=== PATIENT | male | born 1945 | race Caucasian/White ===

== ENCOUNTER 2017-07-12 11:04 | Emergency (ER) | payer MEDICARE, OTHER ==
[2017-07-12 11:32] VITALS: BP 145/99
--- NOTE | 2017-07-12 11:45 | EDM.PDOC ---
ED HPI GENERAL MEDICAL PROBLEM - General Chief Complaint: Lower Extremity Injury/Pain Stated Complaint: LT KNEE PAIN Time Seen by Provider: 07/12/17 11:27 Source of Information: Reports: Patient History Limitations: Reports: No Limitations - History of Present Illness INITIAL COMMENTS - FREE TEXT/NARRATIVE: The patient is a 72-year-old male who presents with left knee pain. He states he fell down the stairs at home last night. States that he thinks his knee twisted during the injury. Today he comes in for evaluation of left knee pain. States that the pain is minimal at rest. However when he tries to put weight on it it is uncomfortable. He feels like the knee is getting give out on him. He's more concerned about this giving out feeling than the pain. No hip pain. No ankle or foot pain. Denies additional injury. Denies head injury, neck injury, back, chest, or abdominal injury. Hasn't taken anything for pain today, states he doesn't need pain medication as long as he is able to rest the leg. Left Knee Pain Score (Numeric/FACES): 2 - Related Data Allergies Allergy/AdvReac Type Severity Reaction Status Date / Time No Known Allergies Allergy Verified 07/12/17 11:30 Home Meds: Home Meds Levothyroxine 175 mcg PO DAILY 08/05/14 [History] Past Medical History HEENT History: Reports: Hard of Hearing, Other (See Below) Other HEENT History: bilateral hearing aids Gastrointestinal History: Reports: Diverticulosis, GERD, Other (See Below) Other Gastrointestinal History: current hernia Genitourinary History: Reports: Other (See Below) Other Genitourinary History: kidney tumor with L nephrectomy Musculoskeletal History: Endocrine/Metabolic History: Reports: Hypothyroidism - Past Surgical History HEENT Surgical History: Reports: Cataract Surgery GI Surgical History: Reports: Appendectomy, Cholecystectomy, Other (See Below) Musculoskeletal Surgical History: Reports: Other (See Below) Social & Family History - Tobacco Use Smoking Status *Q: Former Smoker Years of Tobacco use: 45 Used Tobacco, but Quit: Yes Month Tobacco Last Used: 20 years Second Hand Smoke Exposure: No - Caffeine Use Caffeine Use: Reports: Coffee - Alcohol Use Days Per Week of Alcohol Use: 1 Number of Drinks Per Day: 1 Total Drinks Per Week: 1 - Recreational Drug Use Recreational Drug Use: No Drug Use in Last 12 Months: No Review of Systems - Review of Systems Review Of Systems: See Below Constitutional: Reports: No Symptoms Respiratory: Reports: No Symptoms Cardiovascular: Reports: No Symptoms Musculoskeletal: Reports: Leg Pain Neurological: Reports: No Symptoms ED EXAM, GENERAL - Physical Exam Exam: See Below Exam Limited By: No Limitations General Appearance: Alert, WD/WN, No Apparent Distress Eye Exam: Bilateral Eye: Normal Inspection Ears: Normal External Exam Nose: Normal Inspection Throat/Mouth: Normal Inspection, Normal Voice, No Airway Compromise Head: Atraumatic, Normocephalic Neck: Normal Inspection, Supple, Non-Tender, Full Range of Motion Respiratory/Chest: No Respiratory Distress GI/Abdominal: Soft, Non-Tender, No Distention Extremities: Other (Right lower extremity: No hip tenderness or femur tenderness. Left knee has a small knee effusion. No anterior knee tenderness. Mild tenderness along the medial joint line. Mild tenderness along the lateral joint line. No posterior knee tenderness. Limited range of motion of motion. Patient is able to flex to about 90 and is able to extend completely. Instability exam limited by pain. Skin intact throughout. Distal motor/sensation /perfusion intact.) Neurological: Alert, Oriented, Normal Cognition, No Motor/Sensory Deficits Psychiatric: Normal Affect, Normal Mood Skin Exam: Warm, Dry, Intact, Normal Color, No Rash Course - Vital Signs Last Recorded V/S: Last Vital Signs Temp 36.3 C 07/12/17 11:27 Pulse 72 07/12/17 11:27 Resp 18 07/12/17 11:27 BP 145/99 H 07/12/17 11:27 Pulse Ox 97 07/12/17 11:27 - Orders/Labs/Meds Orders: Active Orders 24 hr Category Date Time Status Knee Min 4V Lt [CR] Stat Exams 07/12/17 11:42 Taken - Re-Assessments/Exams Free Text/Narrative Re-Assessment/Exam: 07/12/17 12:12 XR shows no bony abnormality of the knee. Plan = knee immobilizer, crutches, f/ u with PCP for reeval in 1-2 weeks and for referral for MRI if not better. Departure - Departure Time of Disposition: 12:13 Disposition: Home, Self-Care 01 Clinical Impression: Derangement of knee - Discharge Information Referrals: Elvin Del Toro MD [Primary Care Provider] - Forms: ED Department Discharge Additional Instructions: 1. Take ibuprofen as needed for pain 2. Keep knee immobilized in knee immobilizer. Use crutches. Keep knee elevated when possible. Ice knee off and on today and tomorrow. 3. Follow up with your primary doctor in 1-2 weeks. If improving, you may discontinue knee imobilizer and crutches. If not improving or if knee continues to feel unstable, your primary doctor may consider referral for MRI and orthopedics evaluation. - My Orders Last 24 Hours: My Active Orders 07/12/17 11:42 Knee Min 4V Lt [CR] Stat - Assessment/Plan Last 24 Hours: My Active Orders 07/12/17 11:42 Knee Min 4V Lt [CR] Stat
--- NOTE | 2017-07-12 13:30 | CR ---
Left knee: Four views of the left knee were obtained. Comparison: No prior left knee exam. Medial and lateral joint spaces are maintained in height. Small joint effusion is seen. Minimal calcifications within the suprapatellar pouch are seen most likely synovial in location. No acute fracture or other bony abnormality is seen. Impression: 1. Slight synovial calcifications within the suprapatellar pouch. Questionable small joint effusion. 2. No acute bony abnormality is seen. Diagnostic code #2
== END 2017-07-12 12:25 | disposition home or self-care (01) ==
LOC: JD.ED 11:04
DX: M23.92 Unspecified internal derangement of left knee (principal); E03.9 Hypothyroidism, unspecified; Z87.891 Personal history of nicotine dependence; Z79.899 Other long term (current) drug therapy
CPT/HCPCS: 73564-26-LT; 73564-LT; 99283

== ENCOUNTER 2019-03-19 21:50 | Emergency (ER) | payer MEDICARE, OTHER ==
[2019-03-19 22:12] VITALS: BP 166/105
[2019-03-19] MEDS ORDERED: HYDROmorphone 0.5 MG/0.5 ML Syringe IVPUSH ONE (23:12)
[2019-03-19] MEDS ORDERED: Ondansetron 4 MG/2 ML SDV IVPUSH ONE (23:12)
[2019-03-19] MEDS ORDERED: Sodium Chloride 0.9% 1,000 ML IV SCH (23:15)
[2019-03-20] MEDS ORDERED: Magnesium Citrate Solution 296 ML Bottle PO ONE (00:20)
--- NOTE | 2019-03-20 00:23 | EDM.PDOC ---
ED HPI GENERAL MEDICAL PROBLEM - General Chief Complaint: Abdominal Pain Stated Complaint: ABDOMINAL PAIN Time Seen by Provider: 03/19/19 22:44 Source of Information: Reports: Patient, RN Notes Reviewed - History of Present Illness INITIAL COMMENTS - FREE TEXT/NARRATIVE: 73-year-old male comes in with abdominal pain. Case this started a few hours ago. Been feeling fine earlier today. He has had no nausea vomiting or diarrhea. No fever or chills. Does have history of prior hernia repair and also has had prior diverticulitis. No chest pain or difficulty breathing. His been somewhat constipated, no BM for the last day or 2. Middle Abdominal Pain Score (Numeric/FACES): 10 - Related Data Allergies Allergy/AdvReac Type Severity Reaction Status Date / Time No Known Allergies Allergy Verified 03/19/19 22:12 Home Meds: Home Meds Levothyroxine 175 mcg PO DAILY 08/05/14 [History] Past Medical History HEENT History: Reports: Hard of Hearing, Other (See Below) Other HEENT History: bilateral hearing aids Gastrointestinal History: Reports: Diverticulosis, GERD, Other (See Below) Other Gastrointestinal History: current hernia Genitourinary History: Reports: Other (See Below) Other Genitourinary History: kidney tumor with L nephrectomy Musculoskeletal History: Endocrine/Metabolic History: Reports: Hypothyroidism - Past Surgical History HEENT Surgical History: Reports: Cataract Surgery GI Surgical History: Reports: Appendectomy, Cholecystectomy, Other (See Below) Musculoskeletal Surgical History: Reports: Other (See Below) Social & Family History - Tobacco Use Smoking Status *Q: Never Smoker - Caffeine Use Caffeine Use: Reports: Coffee - Recreational Drug Use Recreational Drug Use: No ED ROS GENERAL - Review of Systems Review Of Systems: See Below Constitutional: Denies: Fever, Chills HEENT: Denies: Throat Pain Respiratory: Denies: Shortness of Breath Cardiovascular: Denies: Chest Pain GI/Abdominal: Reports: Abdominal Pain (Generalized with occasional cramps), Constipation. Denies: Diarrhea, Nausea, Vomiting Musculoskeletal: Denies: Shoulder Pain, Arm Pain, Back Pain Skin: Reports: No Symptoms Neurological: Reports: No Symptoms ED EXAM, GI/ABD - Physical Exam Exam: See Below General Appearance: Alert, Moderate Distress Throat/Mouth: Normal Inspection, Normal Oropharynx Head: Atraumatic. No: Facial Swelling Neck: Supple Respiratory/Chest: No Respiratory Distress Cardiovascular: Regular Rate, Rhythm GI/Abdominal Exam: Soft, Distended (Mild), Tender (Is mild to moderate diffuse tenderness). No: Guarding, Rebound Extremities: Normal Inspection, Normal Range of Motion Neurological: Oriented, No Motor/Sensory Deficits Course - Vital Signs Last Recorded V/S: Last Vital Signs Temp 97.1 F 03/19/19 22:09 Pulse 77 03/19/19 22:09 Resp 16 03/19/19 22:09 BP 166/105 H 03/19/19 22:09 Pulse Ox 96 03/19/19 22:09 - Orders/Labs/Meds Orders: Active Orders 24 hr Category Date Time Status Abdomen 2V AP Flat Upright [CR] Stat Exams 03/19/19 22:24 Taken Labs: Laboratory Tests 03/19/19 03/19/19 03/19/19 Range/Units 22:18 22:18 22:18 WBC 10.20 H (4.23-9.07) K/mm3 RBC 5.21 (4.63-6.08) M/mm3 Hgb 16.5 D (13.7-17.5) gm/L Hct 49.0 (40.1-51.0) % MCV 94.0 H (79.0-92.2) fl MCH 31.7 (25.7-32.2) pg MCHC 33.7 (32.2-35.5) g/dl RDW Std Deviation 44.1 H (35.1-43.9) fL Plt Count 245 (163-337) K/mm3 MPV 10.4 (9.4-12.3) fl Neut % (Auto) 58.8 (34.0-67.9) % Lymph % (Auto) 25.8 (21.8-53.1) % Faulkner % (Auto) 9.7 (5.3-12.2) % Eos % (Auto) 4.8 (0.8-7.0) Baso % (Auto) 0.7 (0.1-1.2) % Neut # (Auto) 6.00 H (1.78-5.38) K/mm3 Lymph # (Auto) 2.63 (1.32-3.57) K/mm3 Faulkner # (Auto) 0.99 H (0.30-0.82) K/mm3 Eos # (Auto) 0.49 (0.04-0.54) K/mm3 Baso # (Auto) 0.07 (0.01-0.08) K/mm3 Sodium 144 (136-145) mEq/L Potassium 4.2 (3.5-5.1) mEq/L Chloride 107 (98-107) mEq/L Carbon Dioxide 28 (21-32) mEq/L Anion Gap 13.2 (5-15) BUN 19 H (7-18) mg/dL Creatinine 1.0 (0.7-1.3) mg/dL Est Cr Clr Drug Dosing 64.60 mL/min Estimated GFR (MDRD) > 60 (>60) mL/min BUN/Creatinine Ratio 19.0 H (14-18) Glucose 114 (83-115) mg/dL Calcium 9.2 (8.5-10.1) mg/dL Total Bilirubin 0.4 (0.2-1.0) mg/dL AST 24 (15-37) U/L ALT 37 (16-63) U/L Alkaline Phosphatase 82 (46-116) U/L C-Reactive Protein < 0.2 (<1.0) mg/dL Total Protein 7.8 (6.4-8.2) g/dl Albumin 3.7 (3.4-5.0) g/dl Globulin 4.1 gm/dL Albumin/Globulin Ratio 0.9 L (1-2) Lipase 112 (73-393) U/L Meds: Medications Discontinued Medications Generic Name Dose Route Start Last Admin Trade Name Freq PRN Reason Stop Dose Admin Hydromorphone HCl 0.5 mg 03/19/19 23:12 03/19/19 23:18 Dilaudid IVPUSH 03/19/19 23:13 0.5 mg ONETIME ONE Administration Sodium Chloride 1,000 mls @ 999 mls/hr 03/19/19 23:15 03/19/19 23:17 Normal Saline IV 999 mls/hr ONETIME DOMINGO Administration Magnesium Citrate 296 ml 03/20/19 00:20 03/20/19 00:30 Citrate Of Magnesia PO 03/20/19 00:21 296 ml ONETIME ONE Administration Ondansetron HCl 4 mg 03/19/19 23:12 03/19/19 23:17 Zofran IVPUSH 03/19/19 23:13 4 mg ONETIME ONE Administration - Re-Assessments/Exams Free Text/Narrative Re-Assessment/Exam: 03/20/19 04:23 White blood count came back 10,200 C reactive protein 0.2 other labs as documented. X-ray showed increased stool in the colon, no air-fluid levels or any significant gas build up suggestive for bowel obstruction. Due to fairly significant pain at time of arrival we did give Dilaudid 0.5 mg IV and also gave some Zofran 4 mg IV after patient did vomit. After he vomited he said the pain seemed to let up but that is also shortly after we had given the Dilaudid. When I did go back to check on him a while later he was sleeping and no pain or cramping at that time. He does feel up to going home. Discharge instructions as documented. Departure - Departure Time of Disposition: 00:21 Disposition: Home, Self-Care 01 Condition: Fair Clinical Impression: Abdominal pain Qualifiers: Abdominal location: generalized Qualified Code(s): R10.84 - Generalized abdominal pain Constipation Qualifiers: Constipation type: unspecified constipation type Qualified Code(s): K59.00 - Constipation, unspecified - Discharge Information Instructions: Constipation, Adult, [id number] Referrals: Elvin Del Toro MD [Primary Care Provider] - Forms: ED Department Discharge Additional Instructions: You have been given sedating type medication will here in the ED so do not drive until noon tomorrow at the earliest, drink plenty of water to maintain hydration, drink some of the mag citrate now before you go to sleep, drink about half the bottle tomorrow morning, if you do not have a BM by later tomorrow morning you can drink the remainder of the bottle. Consider stool softener as needed, consider MiraLAX or other [id number] laxative as needed if having any further difficulty with constipation. Follow-up clinic as needed, return to ED as needed if symptoms worsening in any way. - My Orders Last 24 Hours: My Active Orders 03/19/19 22:24 Abdomen 2V AP Flat Upright [CR] Stat - Assessment/Plan Last 24 Hours: My Active Orders 03/19/19 22:24 Abdomen 2V AP Flat Upright [CR] Stat
--- NOTE | 2019-03-20 08:15 | CR ---
Abdomen: Supine and upright views of the abdomen were obtained. Comparison: Prior abdominal x-ray of 11/23/12. Surgical clips are seen from prior cholecystectomy. Bowel gas pattern is normal. Calcifications are seen within the pelvis which are compatible with phleboliths. Bony structures are within normal limits for the patient's age. No free air is seen. Impression: 1. Findings which are believed to be incidental. Nothing acute is seen. Diagnostic code #2
== END 2019-03-20 00:30 | disposition home or self-care (01) ==
LOC: JD.ED 21:50
DX: K59.00 Constipation, unspecified (principal); E03.9 Hypothyroidism, unspecified; Z90.49 Acquired absence of other specified parts of digestive tract; Z79.899 Other long term (current) drug therapy
CPT/HCPCS: 36415; 74019; 80053; 83690; 85025; 86140; 96361; 96374; 96375; 99284; A9270; J1170; J2405; J7040

== ENCOUNTER 2022-07-05 15:40 | Emergency (ER) | payer MEDICARE, BC | END 2022-07-05 16:00 | LOC: JD.ED 15:40 | DX: Z53.21 Procedure and treatment not carried out due to patient leaving prior to being seen by health care provider (principal) ==

== ENCOUNTER 2022-07-24 17:11 | Emergency (ER) | payer MEDICARE, BC ==
[2022-07-24 17:47] VITALS: BP 133/66; PULSE 74
== END 2022-07-24 21:16 | disposition home or self-care (01) ==
LOC: JD.ED 17:11
DX: M25.562 Pain in left knee (principal); E03.9 Hypothyroidism, unspecified; Z79.899 Other long term (current) drug therapy; W19.XXXA Unspecified fall, initial encounter
CPT/HCPCS: 72170; 72170-26; 72220; 72220-26; 73562-26-LT; 73562-LT; 99283

== ENCOUNTER 2022-11-21 09:50 | Emergency (ER) | payer MEDICARE, BC ==
[2022-11-21] MEDS ORDERED: Lidocaine 1% 10 ML MDV INJECT ONE (12:00)
[2022-11-21 13:52] VITALS: BP 133/76; PULSE 80
== END 2022-11-21 13:35 | disposition home or self-care (01) ==
LOC: JD.ED 09:50
DX: K04.7 Periapical abscess without sinus (principal); E03.9 Hypothyroidism, unspecified; Z79.899 Other long term (current) drug therapy
CPT/HCPCS: 10060; 36415; 41800; 80053; 85025; 99283; J3490

== ENCOUNTER 2023-12-25 06:00 | Day surgery (SDC) | payer MEDICARE, BC ==
[~2023-12-25 06:00] MED LIST: Lactated Ringers 1,000 ML IV SCH; Sodium Chloride 0.9% 10 ML Syringe FLUSH PRN; Sodium Chloride 0.9% 10 ML Syringe FLUSH SCH
[2023-12-25] MEDS: Lactated Ringers 1,000 ML IV SCH (06:15)
[2023-12-25] MEDS ORDERED: Lidocaine 1% 10 ML MDV ONE (06:27)
[2023-12-25] MEDS ORDERED: Bupivacaine 0.25% 10 ML SDV ONE (06:27)
[2023-12-25] MEDS ORDERED: Propofol 200 MG/20 ML SDV ONE (06:40)
[2023-12-25] MEDS ORDERED: Lidocaine 1% 5 ML VIAL ONE (06:40)
[2023-12-25] MEDS ORDERED: fentaNYL 100 MCG/2 ML SDV ONE (06:40)
[2023-12-25] MEDS ORDERED: Ketorolac 15 MG/ML SDV ONE (06:40)
[2023-12-25] MEDS: Lidocaine 1% 10 ML MDV ONE (07:18)
[2023-12-25] MEDS: Bupivacaine 0.25% 10 ML SDV ONE (07:18)
[2023-12-25] MEDS ORDERED: Sodium Chloride 0.9% 10 ML Syringe FLUSH SCH (09:00)
[2023-12-25 09:26] VITALS: BP 121/73; PULSE 55
== END 2023-12-25 08:30 | disposition home or self-care (01) ==
LOC: JD.SDS 06:00
PROVIDERS: ATTEND Orthopaedic Surgery
DX: G56.01 Carpal tunnel syndrome, right upper limb (principal); E78.2 Mixed hyperlipidemia; R06.00 Dyspnea, unspecified; E03.9 Hypothyroidism, unspecified; K21.9 Gastro-esophageal reflux disease without esophagitis; Z79.890 Hormone replacement therapy; Z79.899 Other long term (current) drug therapy; Z87.891 Personal history of nicotine dependence
CPT/HCPCS: 64721; J0665; J1885; J2704; J3010; J7120; 01810; 99100; J3490